=== PATIENT | female | born 1975 | race Caucasian/White ===

== ENCOUNTER 2017-02-23 18:47 | Emergency (ER) | payer SELFPAY ==
[~2017-02-23] VITALS: Ht 167.6 cm; Wt 68.2 kg
[~2017-02-23 18:47] MED LIST: GABA-531 PO; LORA10CA PO; TRAM50TA4 PO
[2017-02-23] MEDS ORDERED: ACETAMINOPHEN 500 MG TABLET PO ONE (19:45)
[2017-02-23] MEDS ORDERED: PERTUSS(ACELL),DIPH,TET VAC/PF 0.5 ML VIAL IM ONE (19:45)
[2017-02-23] MEDS ORDERED: LIDOCAINE HCL 1%/EPI 1:100,000 30 ML VIAL INJ ONE (20:45)
[2017-02-23] MEDS ORDERED: LIDOCAINE HCL 1%/EPI 1:200,000/PF 10 ML VIAL INJ ONE (21:00)
[2017-02-23] MEDS ORDERED: BACITRACIN 0.9 GM PACKET OINTMENT TP ONE (22:00)
[2017-02-23 22:18] VITALS: BP 115/70
== END 2017-02-23 22:23 | disposition home or self-care (01) ==
LOC: EMS 18:49
DX: S01.01XA Laceration without foreign body of scalp, initial encounter (principal); R51 Headache; F17.210 Nicotine dependence, cigarettes, uncomplicated; Y08.89XA Assault by other specified means, initial encounter; Y93.89 Activity, other specified; Y99.8 Other external cause status; Y92.89 Other specified places as the place of occurrence of the external cause
CPT/HCPCS: 12002; 70450; 90471; 90715; 99284; J3490

== ENCOUNTER 2018-02-16 18:39 | Emergency (ER) | payer MEDICAID ==
[~2018-02-16] VITALS: Ht 160 cm; Wt 90.5 kg
[2018-02-16] MEDS ORDERED: LEVE250T55 PO (19:13)
[2018-02-16 20:45] VITALS: BP 137/85
== END 2018-02-16 20:45 | disposition home or self-care (01) ==
LOC: EMS 18:40
DX: R56.9 Unspecified convulsions (principal); Z79.899 Other long term (current) drug therapy
CPT/HCPCS: 99281; 99283

== ENCOUNTER 2018-02-17 06:28 | Inpatient (IN) | payer MEDICAID ==
[~2018-02-17] VITALS: Ht 167.6 cm; Wt 73.5 kg
[~2018-02-17 06:28] MED LIST changes: -GABA-531 PO; +LEVE250T55 PO; -LORA10CA PO; -TRAM50TA4 PO
[2018-02-17] MEDS ORDERED: HALOPERIDOL LACTATE 5 MG/ML VIAL IM ONE (08:30)
[2018-02-17] MEDS ORDERED: LORazepam 2 MG/ML VIAL IM ONE (08:30)
[2018-02-17] MEDS ORDERED: DiphenhydrAMINE HCL 50 MG/ML VIAL IM ONE (08:30)
[2018-02-17] MEDS ORDERED: HALOPERIDOL 5 MG TABLET PO PRN (08:45)
[2018-02-17] MEDS ORDERED: ZOLPIDEM TARTRATE 10 MG TABLET PO PRN (08:45)
[2018-02-17 09:18] LABS: BASOPHILS % (AUTO) 0.4 % (0.0-2.0); EOSINOPHILS % (AUTO) 1.4 % (1.0-6.0); HEMATOCRIT 30.2 % (36-46); HEMOGLOBIN 9.8 g/dL (12.0-16.0); LYMPHOCYTES # (AUTO) 1.6 K/uL (1.0-4.8); LYMPHOCYTES % (AUTO) 12.2 % (22.0-44.0); MEAN CORPUSCULAR HGB CONC 32.6 G/dL (31.0-37.0); MEAN CORPUSCULAR VOLUME 77 fL (80-100); MONOCYTES # (AUTO) 0.6 K/uL (0.1-1.0); MONOCYTES % (AUTO) 4.9 % (2.0-9.0); NEUTROPHILS # (AUTO) 10.3 K/uL (1.8-7.7); NEUTROPHILS % (AUTO) 81.1 % (40.0-70.0); PLATELET COUNT (AUTO) 322 K/uL (150-450); RED BLOOD CELL COUNT(AUTO) 3.93 MIL/uL (4.00-5.20); RED CELL DISTRIBUTION WIDTH 15.1 % (11.5-14.5)
[2018-02-17 09:34] LABS: ALANINE AMINOTRANSFERASE 46 U/L (12-78); ALBUMIN 3.8 g/dL (3.4-5.0); ALKALINE PHOSPHATASE 90 U/L (46-116); ANION GAP 10 mmol/L (8-16); ASPARTATE AMINOTRANSFERASE 80 U/L (15-37); BILIRUBIN,TOTAL 1.1 mg/dL (0.1-1.0); CALCIUM, TOTAL 8.2 mg/dL (8.8-10.5); CARBON DIOXIDE 24 mmol/L (22-29); CHLORIDE 102 mmol/L (98-107); CREATININE 0.83 mg/dL (0.60-1.30); GLOMERULAR FILTR. RATE CALC > 60 mL/min (>60); GLUCOSE,RANDOM 127 mg/dL (70-110); SODIUM SERUM 136 mmol/L (136-145); TOTAL PROTEIN, SERUM 7.6 g/dL (6.4-8.2); UREA NITROGEN, BLOOD 27 mg/dL (7-18)
[2018-02-17 09:35] LABS: POTASSIUM 2.8 mmol/L (3.5-5.1)
[2018-02-17] MEDS ORDERED: POTASSIUM CHLORIDE 20 MEQ ER TABLET PO ONE (09:45)
[2018-02-17 09:47] LABS: CHOL/HDL RATIO 3.7 (3.9-5.7); CHOLESTEROL 126 mg/dL (131-200); HDL CHOLESTEROL 34 mg/dL (40-60); LDL CHOL (CALC.) 79 mg/dL (0-130); TRIGLYCERIDES 67 mg/dL (15-150)
[2018-02-17] MEDS ORDERED: POTASSIUM CHLORIDE 10% 40 MEQ/30 ML LIQUID UDCUP ONE (10:07)
[2018-02-17] MEDS ORDERED: SODIUM CHLORIDE 0.9% 500 ML IV ONE (10:28)
[2018-02-17] MEDS ORDERED: POTASSIUM CHLORIDE 10% 40 MEQ/30 ML LIQUID UDCUP PO ONE (10:30)
[2018-02-17] MEDS: POTASSIUM CHL 10 MEQ/WATER 50 ML IV SCH ×2 (10:34→11:28)
[2018-02-17 13:03] LABS: ANION GAP 10 mmol/L (8-16); CALCIUM, TOTAL 7.6 mg/dL (8.8-10.5); CARBON DIOXIDE 25 mmol/L (22-29); CHLORIDE 104 mmol/L (98-107); CREATININE 0.75 mg/dL (0.60-1.30); GLOMERULAR FILTR. RATE CALC > 60 mL/min (>60); GLUCOSE,RANDOM 94 mg/dL (70-110); POTASSIUM 3.7 mmol/L (3.5-5.1); SODIUM SERUM 139 mmol/L (136-145); UREA NITROGEN, BLOOD 25 mg/dL (7-18)
[2018-02-17] MEDS ORDERED: GuaiFENesin/D-METHORPHAN [SUGAR-FREE] 200-20MG/10 ML SYRUP UDCUP PO PRN (13:15)
[2018-02-17] MEDS ORDERED: HydrOXYzine PAMOATE 50 MG CAPSULE PO PRN (13:15)
[2018-02-17] MEDS ORDERED: PROMETHAZINE HCL 25 MG TABLET PO PRN (13:15)
[2018-02-17] MEDS ORDERED: OLANZapine 5 MG RAPDIS TABLET PO PRN (13:15)
[2018-02-17] MEDS ORDERED: TUBERCULIN, PURIFIED PROTEIN DERIVATIVE 5 TU/0.1 ML SYG ID ONE (13:15)
[2018-02-17 16:08] VITALS: BP 128/67
[2018-02-17] MEDS: THIAMINE HCL 100 MG TABLET PO SCH (17:15)
[2018-02-17] MEDS: LevETIRAcetam 500 MG TABLET PO SCH (17:15)
[2018-02-17] MEDS: OLANZapine 5 MG RAPDIS TABLET PO SCH (21:00)
[2018-02-17] MEDS: DIVALPROEX SODIUM 500 MG ER TABLET PO SCH (21:00)
[2018-02-18 06:18] VITALS: BP 123/77
[2018-02-18 08:14] VITALS: BP 101/63
[2018-02-18] MEDS: THIAMINE HCL 100 MG TABLET PO SCH ×2 (08:24→16:49)
[2018-02-18] MEDS: MULTIVITAMINS WITH MINERALS, THERAPEUTIC TABLET PO SCH (08:24)
[2018-02-18] MEDS: LevETIRAcetam 500 MG TABLET PO SCH ×2 (08:24→16:49)
[2018-02-18] MEDS: NALTREXONE HCL 50 MG TABLET PO SCH (08:24)
[2018-02-18] MEDS: FOLIC ACID 1 MG TABLET PO SCH (08:25)
[2018-02-18 16:00] VITALS: BP 134/82
[2018-02-18] MEDS: DIVALPROEX SODIUM 500 MG ER TABLET PO SCH (20:38)
[2018-02-18] MEDS: OLANZapine 5 MG RAPDIS TABLET PO SCH (20:38)
[2018-02-19 05:05] VITALS: BP 130/78
[2018-02-19 08:00] VITALS: BP 94/61
[2018-02-19] MEDS: THIAMINE HCL 100 MG TABLET PO SCH ×2 (09:31→16:51)
[2018-02-19] MEDS: NALTREXONE HCL 50 MG TABLET PO SCH (09:31)
[2018-02-19] MEDS: MULTIVITAMINS WITH MINERALS, THERAPEUTIC TABLET PO SCH (09:31)
[2018-02-19] MEDS: LevETIRAcetam 500 MG TABLET PO SCH ×2 (09:31→16:51)
[2018-02-19] MEDS: FOLIC ACID 1 MG TABLET PO SCH (09:31)
[2018-02-19 16:15] VITALS: BP 118/75
[2018-02-19] MEDS: OLANZapine 10 MG RAPDIS TABLET PO SCH (21:05)
[2018-02-19] MEDS: DIVALPROEX SODIUM 500 MG ER TABLET PO SCH (21:05)
[2018-02-20 03:58] VITALS: BP 122/78
[2018-02-20] MEDS: FERROUS SULFATE 325 MG EC TABLET PO SCH (06:41)
[2018-02-20 08:14] VITALS: BP 128/82
[2018-02-20 08:59] LABS: BASOPHILS % (AUTO) 0.4 % (0.0-2.0); EOSINOPHILS % (AUTO) 3.2 % (1.0-6.0); HEMATOCRIT 31.3 % (36-46); HEMOGLOBIN 10.2 g/dL (12.0-16.0); LYMPHOCYTES # (AUTO) 2.5 K/uL (1.0-4.8); MEAN CORPUSCULAR HEMOGLOBIN 25.3 pg (26.0-34.0); MEAN CORPUSCULAR HGB CONC 32.7 G/dL (31.0-37.0); MEAN CORPUSCULAR VOLUME 77 fL (80-100); MONOCYTES # (AUTO) 0.3 K/uL (0.1-1.0); MONOCYTES % (AUTO) 4.6 % (2.0-9.0); NEUTROPHILS # (AUTO) 3.7 K/uL (1.8-7.7); NEUTROPHILS % (AUTO) 54.8 % (40.0-70.0); PLATELET COUNT (AUTO) 301 K/uL (150-450); RED BLOOD CELL COUNT(AUTO) 4.05 MIL/uL (4.00-5.20)
[2018-02-20] MEDS: LevETIRAcetam 500 MG TABLET PO SCH ×2 (09:33→16:33)
[2018-02-20] MEDS: FOLIC ACID 1 MG TABLET PO SCH (09:33)
[2018-02-20] MEDS: NALTREXONE HCL 50 MG TABLET PO SCH (09:34)
[2018-02-20] MEDS: MULTIVITAMINS WITH MINERALS, THERAPEUTIC TABLET PO SCH (09:34)
[2018-02-20] MEDS: THIAMINE HCL 100 MG TABLET PO SCH ×2 (09:34→16:33)
[2018-02-20] MEDS: LORazepam 2 MG TABLET PO PRN (16:34)
[2018-02-20 16:46] VITALS: BP 107/68
[2018-02-20] MEDS: OLANZapine 10 MG RAPDIS TABLET PO SCH (20:33)
[2018-02-20] MEDS: DIVALPROEX SODIUM 500 MG ER TABLET PO SCH (20:33)
[2018-02-21 06:39] VITALS: BP 108/69
[2018-02-21] MEDS: FERROUS SULFATE 325 MG EC TABLET PO SCH (06:50)
[2018-02-21 08:27] VITALS: BP 132/86
[2018-02-21] MEDS: MULTIVITAMINS WITH MINERALS, THERAPEUTIC TABLET PO SCH (08:34)
[2018-02-21] MEDS: NALTREXONE HCL 50 MG TABLET PO SCH (08:34)
[2018-02-21] MEDS: FOLIC ACID 1 MG TABLET PO SCH (08:34)
[2018-02-21] MEDS: LevETIRAcetam 500 MG TABLET PO SCH ×2 (08:34→16:18)
[2018-02-21] MEDS: THIAMINE HCL 100 MG TABLET PO SCH ×2 (08:35→16:18)
[2018-02-21 16:05] VITALS: BP 120/76
[2018-02-21] MEDS: DIVALPROEX SODIUM 500 MG ER TABLET PO SCH (20:27)
[2018-02-21] MEDS: OLANZapine 10 MG RAPDIS TABLET PO SCH (20:28)
[2018-02-22] MEDS: FERROUS SULFATE 325 MG EC TABLET PO SCH (06:29)
[2018-02-22 08:34] VITALS: BP 118/76
[2018-02-22] MEDS: NALTREXONE HCL 50 MG TABLET PO SCH (08:35)
[2018-02-22] MEDS: FOLIC ACID 1 MG TABLET PO SCH (08:35)
[2018-02-22] MEDS: LevETIRAcetam 500 MG TABLET PO SCH ×2 (08:35→16:17)
[2018-02-22] MEDS: MULTIVITAMINS WITH MINERALS, THERAPEUTIC TABLET PO SCH (08:35)
[2018-02-22] MEDS: THIAMINE HCL 100 MG TABLET PO SCH ×2 (08:35→16:16)
[2018-02-22 16:19] VITALS: BP 116/74
[2018-02-22] MEDS: OLANZapine 10 MG RAPDIS TABLET PO SCH (20:36)
[2018-02-22] MEDS: DIVALPROEX SODIUM 500 MG ER TABLET PO SCH (20:36)
[2018-02-23] MEDS: FERROUS SULFATE 325 MG EC TABLET PO SCH (06:28)
[2018-02-23 07:11] VITALS: BP 124/70
[2018-02-23 08:00] VITALS: BP 107/62
[2018-02-23] MEDS: NALTREXONE HCL 50 MG TABLET PO SCH (09:46)
[2018-02-23] MEDS: THIAMINE HCL 100 MG TABLET PO SCH ×2 (09:46→16:37)
[2018-02-23] MEDS: MULTIVITAMINS WITH MINERALS, THERAPEUTIC TABLET PO SCH (09:46)
[2018-02-23] MEDS: FOLIC ACID 1 MG TABLET PO SCH (09:46)
[2018-02-23] MEDS: LevETIRAcetam 500 MG TABLET PO SCH ×2 (09:46→16:37)
[2018-02-23 16:16] VITALS: BP 112/83
[2018-02-23] MEDS: OLANZapine 5 MG RAPDIS TABLET PO SCH (20:37)
[2018-02-23] MEDS: DIVALPROEX SODIUM 500 MG ER TABLET PO SCH (20:37)
[2018-02-24 05:44] VITALS: BP 138/87
[2018-02-24] MEDS: FERROUS SULFATE 325 MG EC TABLET PO SCH (06:36)
[2018-02-24] MEDS ORDERED: FLUoxetine HCL 20 MG CAPSULE PO SCH (09:00)
[2018-02-24 09:16] VITALS: BP 130/83
[2018-02-24] MEDS: MULTIVITAMINS WITH MINERALS, THERAPEUTIC TABLET PO SCH (09:30)
[2018-02-24] MEDS: LevETIRAcetam 500 MG TABLET PO SCH ×2 (09:30→16:44)
[2018-02-24] MEDS: NALTREXONE HCL 50 MG TABLET PO SCH (09:30)
[2018-02-24] MEDS: FOLIC ACID 1 MG TABLET PO SCH (09:30)
[2018-02-24] MEDS: THIAMINE HCL 100 MG TABLET PO SCH ×2 (09:32→16:44)
[2018-02-24 16:00] VITALS: BP 117/75
[2018-02-24] MEDS: OLANZapine 5 MG RAPDIS TABLET PO SCH (20:20)
[2018-02-24] MEDS: DIVALPROEX SODIUM 500 MG ER TABLET PO SCH (20:20)
[2018-02-24] MEDS ORDERED: IBUPROFEN 600 MG TABLET PO PRN (21:15)
[2018-02-24] MEDS ORDERED: ACETAMINOPHEN 325 MG TABLET PO PRN (21:15)
[2018-02-25 07:00] VITALS: BP 127/80
[2018-02-25] MEDS: FERROUS SULFATE 325 MG EC TABLET PO SCH (07:06)
[2018-02-25 08:28] VITALS: BP 127/77
[2018-02-25] MEDS: FLUoxetine HCL 20 MG CAPSULE PO SCH (09:08)
[2018-02-25] MEDS: FOLIC ACID 1 MG TABLET PO SCH (09:09)
[2018-02-25] MEDS: THIAMINE HCL 100 MG TABLET PO SCH ×2 (09:09→16:03)
[2018-02-25] MEDS: MULTIVITAMINS WITH MINERALS, THERAPEUTIC TABLET PO SCH (09:09)
[2018-02-25] MEDS: NALTREXONE HCL 50 MG TABLET PO SCH (09:09)
[2018-02-25] MEDS: LevETIRAcetam 500 MG TABLET PO SCH ×2 (09:09→16:03)
[2018-02-25 16:00] VITALS: BP 116/70
[2018-02-25] MEDS: DIVALPROEX SODIUM 500 MG ER TABLET PO SCH (20:44)
[2018-02-25] MEDS ORDERED: OLANZapine 10 MG RAPDIS TABLET PO SCH (21:00)
[2018-02-25 21:29] VITALS: BP 120/81
[2018-02-25] MEDS: LORazepam 2 MG TABLET PO PRN (21:32)
[2018-02-26 05:00] VITALS: BP 118/74
[2018-02-26] MEDS: FERROUS SULFATE 325 MG EC TABLET PO SCH (06:47)
[2018-02-26 08:22] VITALS: BP 115/77
[2018-02-26] MEDS: MULTIVITAMINS WITH MINERALS, THERAPEUTIC TABLET PO SCH (09:58)
[2018-02-26] MEDS: LevETIRAcetam 500 MG TABLET PO SCH ×2 (09:58→16:40)
[2018-02-26] MEDS: FLUoxetine HCL 20 MG CAPSULE PO SCH (09:58)
[2018-02-26] MEDS: FOLIC ACID 1 MG TABLET PO SCH (09:59)
[2018-02-26] MEDS: NALTREXONE HCL 50 MG TABLET PO SCH (09:59)
[2018-02-26] MEDS: THIAMINE HCL 100 MG TABLET PO SCH ×2 (09:59→16:40)
[2018-02-26] MEDS ORDERED: FLUO-191 PO ×2 (13:09→14:53)
[2018-02-26] MEDS ORDERED: OLAN10TA22 PO (13:09)
[2018-02-26] MEDS ORDERED: NALT50TA PO (13:09)
[2018-02-26] MEDS ORDERED: DIVA500T52 PO ×2 (13:09→14:53)
[2018-02-26] MEDS ORDERED: LEVE500T53 PO ×2 (13:09→14:53)
[2018-02-26] MEDS ORDERED: OLAN10TA6 PO (14:53)
[2018-02-26] MEDS ORDERED: NALT50TA6 PO (14:53)
[2018-02-26 16:21] VITALS: BP 137/83
== END 2018-02-26 17:55 | disposition home or self-care (01) | DRG 751 ==
LOC: EMS 06:30 → B3A 11:29
PROVIDERS: ADMIT Psychiatry & Neurology Psychiatry; ATTEND Psychiatry & Neurology Psychiatry
DX: F23 Brief psychotic disorder (principal); F44.5 Conversion disorder with seizures or convulsions; D64.9 Anemia, unspecified; F17.210 Nicotine dependence, cigarettes, uncomplicated; Z65.3 Problems related to other legal circumstances; Z91.19 Patient's noncompliance with other medical treatment and regimen; Z98.51 Tubal ligation status; Z98.891 History of uterine scar from previous surgery
CPT/HCPCS: 96372; 99285; G0480; J3480; J7040